=== PATIENT | male | born 1960 | race Caucasian/White ===

== ENCOUNTER 2019-01-19 16:18 | Inpatient (IN) | payer OTHER ==
[2019-01-19 16:54] LABS: ADD MAN DIFF? NO
[2019-01-19 16:57] LABS: BASOPHIL # 0.2 10^3/ul (0.0-0.1); BASOPHILS % 0.8 % (0.0-2.0); EOSINOPHILS # 0.2 10^3/ul (0.0-0.5); EOSINOPHILS % 0.8 % (0.0-7.0); HEMATOCRIT 41.7 % (42.0-52.0); HEMOGLOBIN 14.1 g/dl (14.0-18.0); LYMPHOCYTES # 1.9 10^3/ul (0.8-2.9); LYMPHOCYTES % 9.9 % (15.0-51.0); MEAN CORPUSCULAR HEMOGLOBIN 31.3 pg (29.0-33.0); MEAN CORPUSCULAR HGB CONC 33.8 g/dl (32.0-37.0); MEAN CORPUSCULAR VOLUME 92.5 fl (82.0-101.0); MEAN PLATELET VOLUME 8.1 fl (7.4-10.4); MONOCYTES % 5.5 % (0.0-11.0); NEUTROPHIL # 15.5 10^3/ul (1.6-7.5); NEUTROPHILS % 81.3 % (39.0-77.0); PLATELET COUNT 519 10^3/UL (140-415); RED BLOOD COUNT 4.51 10^6/ul (4.70-6.10); RED CELL DISTRIBUTION WIDTH 14.6 % (11.5-14.5)
[2019-01-19 16:57] LABS: WHITE BLOOD COUNT 19.1 10^3/ul (4.8-10.8)
[2019-01-19] MEDS: HYDROmorphONE 1 MG/ML SYG IV (17:05)
[2019-01-19] MEDS: ONDANSETRON 4 MG INJ IV (17:05)
[2019-01-19] MEDS: SOD CHLORIDE 0.9% 1,000 ML IV ×2 (17:05→22:38)
[2019-01-19 17:17] LABS: ALANINE AMINOTRANSFERASE 15 IU/L (13-69); ALBUMIN 3.7 g/dl (3.3-4.9); ALKALINE PHOSPHATASE 126 IU/L (42-121); ANION GAP 10 (5-13); ASPARTATE AMINO TRANSFERASE 28 IU/L (15-46); BILIRUBIN,INDIRECT 0.3 mg/dl (0-1.1); BILIRUBIN,TOTAL 0.3 mg/dl (0.2-1.3); BLOOD UREA NITROGEN 5 mg/dl (7-20); CALCIUM 9.7 mg/dl (8.4-10.2); CARBON DIOXIDE 24 mmol/L (21-31); CHLORIDE 105 mmol/L (97-110); CREATININE 0.85 mg/dl (0.61-1.24); Estimated GFR > 60 mL/min (>60); GLUCOSE 213 mg/dl (70-220); LIPASE 86 U/L (23-300); PROTIME 15.3 Sec (11.9-14.9); PT RATIO 1.2; SODIUM 139 mmol/L (135-144); TOTAL PROTEIN 7.4 g/dl (6.1-8.1)
[2019-01-19 17:29] LABS: TROPONIN-I < 0.012 ng/ml (0.000-0.120)
[2019-01-19] MEDS: HYDROmorphONE 2 MG/ML SYG IV (18:45)
[2019-01-19] MEDS ORDERED: ACETAMINOPHEN 325 MG TAB PO ×2 (20:00→22:00)
[2019-01-19] MEDS ORDERED: ONDANSETRON 4 MG INJ IV (20:00)
[2019-01-19 21:53] LABS: ADD UMIC YES; UR ASCORBIC ACID NEGATIVE (NEGATIVE); UR BILIRUBIN (Dip) NEGATIVE (NEGATIVE); UR BLOOD (Dip) 1+ mg/dL (NEGATIVE); UR CALCIUM OXALATE CRYSTAL MANY /HPF (NONE SEEN); UR CLARITY CLOUDY (CLEAR); UR COLOR YELLOW (YELLOW); UR GLUCOSE (Dip) NEGATIVE (NEGATIVE); UR KETONES (Dip) TRACE mg/dL (NEGATIVE); UR LEUKOCYTE ESTERASE (Dip) NEGATIVE Leu/ul (NEGATIVE); UR MUCUS FEW /HPF (NONE SEEN); UR NITRITE (Dip) NEGATIVE (NEGATIVE); UR RBC 41 /HPF (0-5); UR SPECIFIC GRAVITY (Dip) 1.016 (1.003-1.030); UR TOTAL PROTEIN (Dip) NEGATIVE (NEGATIVE); UR UROBILINOGEN (Dip) NEGATIVE (NEGATIVE); UR WBC 6 /HPF (0-5)
[2019-01-19] MEDS ORDERED: DOCUSATE SODIUM 100 MG CAP PO (22:00)
[2019-01-19] MEDS ORDERED: ONDANSETRON 4 MG TAB PO (22:00)
[2019-01-19] MEDS: HYDROmorphONE 0.5 MG/0.5 ML SYG IV (22:34)
[2019-01-19] MEDS: FAMOTIDINE 20 MG INJ IV (22:37)
[2019-01-19] MEDS: NACL 0.9% 3 ML SYG IV (23:43)
[2019-01-20] MEDS: HYDROmorphONE 0.5 MG/0.5 ML SYG IV ×2 (02:02→22:29)
[2019-01-20] MEDS: HYDROmorphONE 2 MG TAB PO ×4 (02:32→22:36)
[2019-01-20] MEDS: KETOROLAC 15 MG INJ IV ×3 (04:27→16:42)
[2019-01-20 05:22] LABS: WHITE BLOOD COUNT 15.7 10^3/ul (4.8-10.8)
[2019-01-20 05:22] LABS: ADD MAN DIFF? NO; BASOPHIL # 0.2 10^3/ul (0.0-0.1); EOSINOPHILS # 0.2 10^3/ul (0.0-0.5); EOSINOPHILS % 1.5 % (0.0-7.0); HEMOGLOBIN 12.5 g/dl (14.0-18.0); LYMPHOCYTES % 12.9 % (15.0-51.0); MEAN CORPUSCULAR HEMOGLOBIN 30.7 pg (29.0-33.0); MEAN CORPUSCULAR HGB CONC 33.8 g/dl (32.0-37.0); MEAN CORPUSCULAR VOLUME 90.9 fl (82.0-101.0); MEAN PLATELET VOLUME 8.3 fl (7.4-10.4); MONOCYTE # 1.1 10^3/ul (0.3-0.9); MONOCYTES % 6.8 % (0.0-11.0); NEUTROPHIL # 12.1 10^3/ul (1.6-7.5); NEUTROPHILS % 76.9 % (39.0-77.0); PLATELET COUNT 406 10^3/UL (140-415); RED BLOOD COUNT 4.07 10^6/ul (4.70-6.10); RED CELL DISTRIBUTION WIDTH 14.5 % (11.5-14.5)
[2019-01-20 05:55] LABS: HEMOGLOBIN A1C 5.3 % (0-5.9)
[2019-01-20 06:01] LABS: ANION GAP 7 (5-13); BLOOD UREA NITROGEN 3 mg/dl (7-20); CALCIUM 8.9 mg/dl (8.4-10.2); CARBON DIOXIDE 24 mmol/L (21-31); CHLORIDE 107 mmol/L (97-110); CREATININE 0.65 mg/dl (0.61-1.24); Estimated GFR > 60 mL/min (>60); GLUCOSE 154 mg/dl (70-220); POTASSIUM 3.6 mmol/L (3.5-5.1); SODIUM 138 mmol/L (135-144)
[2019-01-20] MEDS: PYRIDOXINE 50 MG TAB PO ×2 (08:58→21:58)
[2019-01-20] MEDS: ISONIAZID 300 MG TAB PO (08:58)
[2019-01-20] MEDS: ZYVOX 600 MG TAB PO (08:58)
[2019-01-20] MEDS: ETHAMBUTOL 400 MG TAB PO (08:58)
[2019-01-20] MEDS: FAMOTIDINE 20 MG INJ IV ×2 (08:58→21:58)
[2019-01-20] MEDS ORDERED: [UNRECOGNIZED DRUG - OTHER] XX (09:00)
[2019-01-20] MEDS: ENOXAPARIN 40 MG/0.4 ML SYG SC (09:05)
[2019-01-20] MEDS: NS + KCL 20 MEQ 1,000 ML IV ×2 (12:25→21:00)
[2019-01-20] MEDS: NICOTINE (14 MG/24 HR) PATCH TRANSDERM (12:26)
[2019-01-21] MEDS: KETOROLAC 15 MG INJ IV ×3 (02:08→15:24)
[2019-01-21 05:21] LABS: ADD MAN DIFF? NO
[2019-01-21 05:35] LABS: BASOPHIL # 0.2 10^3/ul (0.0-0.1); BASOPHILS % 1.4 % (0.0-2.0); EOSINOPHILS # 0.4 10^3/ul (0.0-0.5); EOSINOPHILS % 3.1 % (0.0-7.0); HEMATOCRIT 33.5 % (42.0-52.0); LYMPHOCYTES # 1.9 10^3/ul (0.8-2.9); LYMPHOCYTES % 16.3 % (15.0-51.0); MEAN CORPUSCULAR HEMOGLOBIN 31.2 pg (29.0-33.0); MEAN CORPUSCULAR HGB CONC 32.8 g/dl (32.0-37.0); MEAN CORPUSCULAR VOLUME 94.9 fl (82.0-101.0); MEAN PLATELET VOLUME 8.4 fl (7.4-10.4); MONOCYTES % 8.7 % (0.0-11.0); PLATELET COUNT 270 10^3/UL (140-415); RED BLOOD COUNT 3.53 10^6/ul (4.70-6.10); RED CELL DISTRIBUTION WIDTH 14.8 % (11.5-14.5)
[2019-01-21 05:35] LABS: WHITE BLOOD COUNT 11.4 10^3/ul (4.8-10.8)
[2019-01-21] MEDS: HYDROmorphONE 0.5 MG/0.5 ML SYG IV ×5 (05:48→23:38)
[2019-01-21] MEDS: HYDROmorphONE 2 MG TAB PO ×5 (05:48→23:37)
[2019-01-21] MEDS: NS + KCL 20 MEQ 1,000 ML IV ×2 (05:48→13:51)
[2019-01-21 05:54] LABS: ALANINE AMINOTRANSFERASE 12 IU/L (13-69); ALBUMIN 2.7 g/dl (3.3-4.9); ALKALINE PHOSPHATASE 74 IU/L (42-121); ANION GAP 4 (5-13); ASPARTATE AMINO TRANSFERASE 26 IU/L (15-46); BILIRUBIN,INDIRECT 0.2 mg/dl (0-1.1); BILIRUBIN,TOTAL 0.2 mg/dl (0.2-1.3); BLOOD UREA NITROGEN 5 mg/dl (7-20); CALCIUM 8.5 mg/dl (8.4-10.2); CARBON DIOXIDE 27 mmol/L (21-31); CHLORIDE 110 mmol/L (97-110); CREATININE 0.92 mg/dl (0.61-1.24); Estimated GFR > 60 mL/min (>60); GLUCOSE 104 mg/dl (70-220); LIPASE 88 U/L (23-300); POTASSIUM 3.7 mmol/L (3.5-5.1); SODIUM 141 mmol/L (135-144); TOTAL PROTEIN 5.7 g/dl (6.1-8.1)
[2019-01-21] MEDS: ETHAMBUTOL 400 MG TAB PO (08:57)
[2019-01-21] MEDS: NICOTINE (14 MG/24 HR) PATCH TRANSDERM (08:57)
[2019-01-21] MEDS: FAMOTIDINE 20 MG INJ IV ×2 (08:57→20:43)
[2019-01-21] MEDS: ZYVOX 600 MG TAB PO (08:58)
[2019-01-21] MEDS: PYRIDOXINE 50 MG TAB PO (08:58)
[2019-01-21] MEDS: ISONIAZID 300 MG TAB PO (08:58)
[2019-01-21] MEDS: HEPARIN 5,000 UNIT/1 ML VIAL SC ×2 (09:00→14:37)
[2019-01-21] MEDS: EVENING PO (20:41)
[2019-01-21] MEDS: [UNRECOGNIZED DRUG - OTHER] PO (20:42)
[2019-01-21] MEDS ORDERED: SPECIAL NON-STANDARD MEDICATION PO (21:00)
[2019-01-22] MEDS: NS + KCL 20 MEQ 1,000 ML IV ×3 (01:05→11:47)
[2019-01-22] MEDS: HYDROmorphONE 0.5 MG/0.5 ML SYG IV ×5 (03:24→22:08)
[2019-01-22] MEDS: HYDROmorphONE 2 MG TAB PO ×4 (03:24→22:08)
[2019-01-22] MEDS: KETOROLAC 15 MG INJ IV (07:41)
[2019-01-22] MEDS: FAMOTIDINE 20 MG INJ IV ×2 (09:18→21:55)
[2019-01-22] MEDS: [UNRECOGNIZED DRUG - OTHER] PO ×2 (09:18→21:57)
[2019-01-22] MEDS: NICOTINE (14 MG/24 HR) PATCH TRANSDERM (09:18)
[2019-01-22] MEDS: [UNRECOGNIZED DRUG - OTHER] PO (09:18)
[2019-01-22] MEDS ORDERED: CEFAZOLIN 1 GM INJ (15:54)
[2019-01-22] MEDS ORDERED: PROPOFOL 20 ML (15:54)
[2019-01-22] MEDS ORDERED: ROCURONIUM 50 MG INJ (15:54)
[2019-01-22] MEDS ORDERED: MIDAZOLAM 1 MG/ML 2 ML INJ (15:55)
[2019-01-22] MEDS ORDERED: FENTAnyl 50 MCG/ML VIAL (15:55)
[2019-01-22] MEDS ORDERED: ROPIVACAINE 0.2% 20 ML VIAL (15:55)
[2019-01-22] MEDS ORDERED: ROPIVACAINE 0.5 % 30 ML VIAL (15:55)
[2019-01-22] MEDS ORDERED: METOCLOPRAMIDE 10 MG INJ IV (16:00)
[2019-01-22] MEDS ORDERED: LABETALOL HCL 20MG INJ IV (16:00)
[2019-01-22] MEDS ORDERED: ALBUMIN HUMAN 5% 250 ML IV (16:00)
[2019-01-22] MEDS ORDERED: OXYCODONE/ACETAMINOPHEN (5/325) TAB PO (16:00)
[2019-01-22] MEDS ORDERED: HYDROmorphONE 1 MG/5 ML IV SYRINGE IV ×3 (16:00)
[2019-01-22] MEDS ORDERED: EPHEDrine 25 MG/5 ML SYG IV (16:00)
[2019-01-22] MEDS ORDERED: FENTAnyl 50 MCG/ML VIAL IV ×3 (16:00)
[2019-01-22] MEDS ORDERED: ONDANSETRON 4 MG INJ IV (16:00)
[2019-01-22] MEDS ORDERED: LABETALOL HCL 20MG INJ (16:58)
[2019-01-22] MEDS ORDERED: ONDANSETRON 4 MG INJ (17:06)
[2019-01-22] MEDS ORDERED: METOCLOPRAMIDE 10 MG INJ (17:06)
[2019-01-22] MEDS ORDERED: DEXAMETHASONE 4 MG/ML 5 ML INJ (17:07)
[2019-01-22] MEDS ORDERED: SUGAMMADEX SODIUM 200 MG/2 ML VIAL IV (17:07)
[2019-01-22] MEDS ORDERED: D5W-0.45 NACL + KCL 20 MEQ 1,000 ML IV (17:40)
[2019-01-22] MEDS ORDERED: NS + KCL 20 MEQ 1,000 ML IV (18:00)
[2019-01-22 18:55] LABS: ADD MAN DIFF? NO
[2019-01-22 18:58] LABS: WHITE BLOOD COUNT 13.2 10^3/ul (4.8-10.8)
[2019-01-22 18:58] LABS: BASOPHIL # 0.1 10^3/ul (0.0-0.1); EOSINOPHILS # 0.3 10^3/ul (0.0-0.5); EOSINOPHILS % 2.4 % (0.0-7.0); HEMOGLOBIN 11.1 g/dl (14.0-18.0); LYMPHOCYTES # 0.9 10^3/ul (0.8-2.9); LYMPHOCYTES % 6.8 % (15.0-51.0); MEAN CORPUSCULAR HEMOGLOBIN 31.2 pg (29.0-33.0); MEAN CORPUSCULAR HGB CONC 32.6 g/dl (32.0-37.0); MEAN CORPUSCULAR VOLUME 95.5 fl (82.0-101.0); MEAN PLATELET VOLUME 8.3 fl (7.4-10.4); MONOCYTE # 0.5 10^3/ul (0.3-0.9); MONOCYTES % 3.4 % (0.0-11.0); NEUTROPHIL # 11.3 10^3/ul (1.6-7.5); NEUTROPHILS % 85.5 % (39.0-77.0); PLATELET COUNT 223 10^3/UL (140-415); RED BLOOD COUNT 3.56 10^6/ul (4.70-6.10); RED CELL DISTRIBUTION WIDTH 14.6 % (11.5-14.5)
[2019-01-22 19:19] LABS: ANION GAP 6 (5-13); BLOOD UREA NITROGEN 6 mg/dl (7-20); CALCIUM 8.9 mg/dl (8.4-10.2); CARBON DIOXIDE 25 mmol/L (21-31); CHLORIDE 107 mmol/L (97-110); CREATININE 0.69 mg/dl (0.61-1.24); Estimated GFR > 60 mL/min (>60); GLUCOSE 89 mg/dl (70-220); POTASSIUM 3.7 mmol/L (3.5-5.1); SODIUM 138 mmol/L (135-144)
[2019-01-22] MEDS: EVENING PO (22:16)
[2019-01-23] MEDS: NS + KCL 20 MEQ 1,000 ML IV ×2 (00:51→09:00)
[2019-01-23] MEDS: KETOROLAC 15 MG INJ IV (00:51)
[2019-01-23] MEDS: HYDROmorphONE 0.5 MG/0.5 ML SYG IV ×3 (02:10→15:23)
[2019-01-23] MEDS: HYDROmorphONE 2 MG TAB PO ×3 (02:10→12:36)
[2019-01-23] MEDS: [UNRECOGNIZED DRUG - OTHER] PO (08:39)
[2019-01-23] MEDS: FAMOTIDINE 20 MG INJ IV (08:39)
[2019-01-23] MEDS: NICOTINE (14 MG/24 HR) PATCH TRANSDERM (08:40)
[2019-01-23] MEDS: [UNRECOGNIZED DRUG - OTHER] PO (08:47)
== END 2019-01-23 17:20 | disposition home health service (06) | DRG 421 ==
LOC: E/R 16:18 → MS1 19:47
PROC: 0FJ44ZZ Inspection of Gallbladder, Percutaneous Endoscopic Approach (ICD-10-PCS; principal; 2019-01-22 16:22)
DX: C25.9 Malignant neoplasm of pancreas, unspecified (principal); K80.00 Calculus of gallbladder with acute cholecystitis without obstruction; D64.9 Anemia, unspecified; F17.200 Nicotine dependence, unspecified, uncomplicated
CPT/HCPCS: 36415; 71045; 74176; 76705; 78226; 80048; 80053; 81001; 83036; 83690; 84443; 84484; 85025; 85610; 85730; 93005; 96374; 96375; 96376; 99217; 99285-25